=== PATIENT | male | born 1990 | race Two or more races ===

== ENCOUNTER 2024-08-26 22:50 | Emergency (ER) | payer MEDICAID, SELFPAY ==
[2024-08-26 22:51] VITALS: BMI 43.4
--- NOTE | 2024-08-26 22:54 | EKG_ITS ---
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
[2024-08-26 23:15] VITALS: BP 143/92; PULSE 84; RESP 19; TEMP 36.9; O2SAT 97
--- NOTE | 2024-08-27 01:10 | PC.NURSE ---
STAFF CALLED PATIENT IN THE LOBBY AND OUTSIDE, NO ANSWER RECEIVED.
--- NOTE | 2024-08-27 01:46 | PC.NURSE ---
CALLED PATIENT IN THE LOBBY AND OUTSIDE NO ANSWER RECEIVED.
--- NOTE | 2024-08-27 02:04 | PD.EDADDENDU ---
Emergency Room Addendum Addendum Narrative: When I looked for the patient to start my evaluation, I was told the patient eloped. Oni Schwarz MD
--- NOTE | 2024-08-27 02:17 | PC.NURSE ---
CALLED PATIENT IN THE LOBBY AND OUTSIDE, NO ANSWER RECEIVED.
== END 2024-08-27 02:18 | disposition left against medical advice (07) ==
LOC: SERX 08-27 02:19
PROVIDERS: Emergency Provider Emergency Medicine
DX: Z53.21 Procedure and treatment not carried out due to patient leaving prior to being seen by health care provider (principal)
CPT/HCPCS: 99281